=== PATIENT | male | born 1970 | race Caucasian/White ===

== ENCOUNTER 2016-11-07 12:28 | Emergency (ER) | payer BC ==
[2016-11-07] MEDS ORDERED: CENTRUM PO (12:38)
== END 2016-11-07 13:11 | disposition home or self-care (01) ==
LOC: SED 12:28
DX: T18.128A Food in esophagus causing other injury, initial encounter (principal); Z87.01 Personal history of pneumonia (recurrent); Z79.899 Other long term (current) drug therapy
CPT/HCPCS: 82947; 99283